=== PATIENT | male | born 1950 | race African-American/Black ===

== ENCOUNTER 2018-11-11 17:08 | Emergency (ER) | payer SELFPAY ==
[~2018-11-11] VITALS: Ht 182.9 cm; Wt 102.1 kg
[~2018-11-11 17:08] MED LIST: [UNRECOGNIZED DRUG - OTHER]
[2018-11-11 17:23] VITALS: BP_SYST 148
--- NOTE | 2018-11-11 17:28 | NUR ---
Patient to ER bed 7 to gown for evaluation. Side rails up. Report given to Mateo CANO.
--- NOTE | 2018-11-11 17:32 | NUR ---
Pt AAOx4 ambulated into ED c/o 05/02 pain to rectum r/t hemorrhoid x 2 weeks. Pt states he has been increasing fiber intake, using preparation H, and herbal supplements with no relief. Pt denies blood in stool. No other injuries/complaints per pt/noted. Will continue to monitor.
--- NOTE | 2018-11-11 17:40 | NUR ---
EDWIGE Arndt at bedside examining patient.
--- NOTE | 2018-11-11 17:42 | NUR ---
Rectal exam performed by DOROTHY Arndt with Mateo CANO at bedside during procedure. Patient tolerated well.
[2018-11-11 18:00] VITALS: BP_SYST 138
--- NOTE | 2018-11-11 18:00 | NUR ---
Patient given written and verbal discharge instructions and verbalizes understanding. EDWIGE Nguyen discussed with patient the results and treatment provided. Patient in stable condition. ID arm band removed. No Rx given. Patient educated on pain management and to follow up with PMD. Pain Scale 0. Opportunity for questions provided and answered. Medication side effect fact sheet provided.
== END 2018-11-11 18:00 | disposition home or self-care (01) ==
LOC: SED 17:08
DX: K62.89 Other specified diseases of anus and rectum (principal); Z91.013 Allergy to seafood
CPT/HCPCS: 99283

== ENCOUNTER 2021-05-03 07:02 | Emergency (ER) | payer OTHER ==
[~2021-05-03] VITALS: Ht 182.9 cm; Wt 102.1 kg
[2021-05-03 07:18] VITALS: BP_SYST 144
[2021-05-03] MEDS ORDERED: OXYCODONE/ACETAMINOPHEN 5-325 TABLET PO ONE (07:30)
[2021-05-03] MEDS ORDERED: HYDR-3917 PO (08:29)
[2021-05-03] MEDS ORDERED: IBUP-2018 PO (08:29)
[2021-05-03 09:43] VITALS: BP_SYST 144
== END 2021-05-03 09:43 | disposition home or self-care (01) ==
LOC: SED 07:02
DX: S52.502A Unspecified fracture of the lower end of left radius, initial encounter for closed fracture (principal); M25.552 Pain in left hip; E11.9 Type 2 diabetes mellitus without complications; Z91.013 Allergy to seafood; Z79.899 Other long term (current) drug therapy; V18.4XXA Pedal cycle driver injured in noncollision transport accident in traffic accident, initial encounter; Y93.89 Activity, other specified; Y92.89 Other specified places as the place of occurrence of the external cause; Y99.8 Other external cause status
CPT/HCPCS: 73502; 99284